=== PATIENT | male | born 1980 | race African-American/Black ===

== ENCOUNTER 2025-01-22 01:51 | Emergency (ER) | payer SELFPAY ==
[~2025-01-22] VITALS: Ht 182.9 cm; Wt 81.8 kg
[2025-01-22 02:00] VITALS: BP 133/82; PULSE 84; RESP 16; TEMP 98; O2SAT 96
--- NOTE | 2025-01-22 03:24 | ED.PDOC ---
History of Present Illness HPI Comments 44 y/o M is BIBA from private residence for 2x hour history of nonradiating, periumbilical abdominal pain. Per EMS report, patient's spouse called on his behalf after sudden endorsement of pain at around 2300, last night. Patient is stated to have ate In-N-Out for his most recent meal. He has no significant medical, surgical, or social history. Vitals stable and within normal limits. Patient was noted to have been uncooperative on scene and en route in addition to self-inducing himself to vomit. No reported chest pain, diarrhea, urinary symptoms, fever, chills, or further associated symptoms. Chief Complaint: Abdominal Pain Time Seen by MD: 02:00 Reviewed Notes: Nurses Notes, Mending Carrier Notes, Medications, Allergies Allergies: Coded Allergies: NO KNOWN ALLERGIES (Unverified , 01/22/25) Information Source: Patient, Emergency Med Personnel Mode of Arrival: EMS Severity: Moderate Timing: Hours Duration: Since onset Prehospital treatment: 12 Lead EKG, [employer] Past Medical History PAST MEDICAL HISTORY: Denies Surgical History: Denies all surgeries Family History Family History: Unknown Social History Smoker: Non-Smoker Alcohol: Denies ETOH Use Drugs: Denies Drug Use Lives In: Home All Other Systems: Reviewed and Negative (Comprehensive systems review obtained and negative except for what is stated in the HPI.) Physical Exam Exam Comments rest of exam deferred, due to patient refusing and being uncooperative General Appearance: Other (appears uncomfortable ) HEENT: NOT DONE Neck: NOT DONE Respiratory: NOT DONE Cardiovascular: NOT DONE Breast Exam: Deferred Gastrointestinal: NOT DONE Genitalia: Deferred Pelvic: Deferred Rectal: Deferred Extremities: NOT DONE Neurologic: NOT DONE Cerebellar Function: NOT DONE Reflexes: NOT DONE Skin: NOT DONE Lymphatic: NOT DONE Was a procedure done? Was a procedure done?: No Differential Dx Considerations may include: gastritis, gastroenteritis, spoiled food, viral syndrome, among others X-Ray, Labs, Meds, VS Vital Signs Date Time Temp Pulse Resp B/P (MAP) Pulse Ox O2 Delivery O2 Flow Rate FiO2 01/22/25 02:00 98.0 84 16 133/82 (99) 96 98.0 Time of 1ST Reevaluation: 02:30 Reevaluation 1ST: Unchanged Patient Education/Counseling: Other (patient uncooperative ) Family Education/Counseling: No Family Present Additional Information Previous visits reviewed: N/A The following tests were ordered, and results were reviewed by me: UA, CBC, BMP Additional Information was gathered from interviewing the following independent historians: EMS I reviewed and agreed with the following test results read by other providers: N/A I discussed treatment and results with medical personnel and: patient SEPSIS Sepsis Screen Date sepsis recognized/suspect: Jan 22, 2025 Time Sepsis recognized/suspect: 0200 Recent Procedure: No On Antibiotic Therapy: No Respiratory Rate >20: No Heart Rate >90: No Temp<36 C (96.8 F) or >38.3 C: No SBP <90 or MAP <65 mmHG: No New Acute Mental Status Change: No Is the patient on CPAP, BIPAP,: No Physician Orders Urinalysis (01/22/25 02:05) Vital Signs Date Time Temp Pulse Resp B/P (MAP) Pulse Ox O2 Delivery O2 Flow Rate FiO2 01/22/25 02:00 98.0 84 16 133/82 (99) 96 98.0 Departure 1 Departure Time of Disposition: 04:46 (Patient refused all examined intervention and then patient eloped from the emergency room) Impression: Primary Impression: Abdominal pain Qualified Codes: R10.84 - Generalized abdominal pain Disposition: 07 LEFT AWOL/ELOPED Condition: Serious Critical Care Note Critical Care Time?: No Stability Stability form required: No Heart Score Heart Score: Heart Score Response (Comments) Value History N/A 0 EKG N/A 0 Age N/A 0 Risk Factors N/A 0 Troponin N/A 0 Total 0 I personally scribed for DARWIN DE LA TORRE MD ([email or web address]) on 01/22/25 at 03:24. Electronically submitted by Reinier Mcrae ([email or web address]). DARWIN DE LA TORRE MD Jan 22, 2025 03:24
== END 2025-01-22 03:56 | disposition left against medical advice (07) ==
LOC: EDBD 01:51 → ER 01:51
DX: R10.33 Periumbilical pain (principal)